=== PATIENT | male | born 1965 | race Caucasian/White ===

== ENCOUNTER 2021-06-13 08:25 | Emergency (ER) | payer OTHER ==
[2021-06-13 08:49] LABS: Absolute Lymphocytes (CBC) 6.9 K/uL (0.7-4.9); Basophils % 0.9 % (0-1.3); Hematocrit 48.4 % (39.6-49.0); Lymphocytes % 28.6 % (15.3-44.8); MPV 9.9 fL (7.6-11.3); RBC Red Blood Cell Count 4.77 M/uL (4.33-5.43)
[2021-06-13 09:16] LABS: Albumin 2.1 g/dL (3.4-5.0); Bilirubin Total 1.5 mg/dL (0.2-1.0); Protein, Total 5.9 g/dL (6.4-8.2)
[2021-06-13 09:18] LABS: Bilirubin Direct 0.5 mg/dL (0-0.2); Troponin (Emerg Dept Use Only) 1.61 ng/mL (0.0-0.045)
[2021-06-13 09:19] LABS: Magnesium 3.8 mg/dL (1.8-2.4)
[2021-06-13 09:20] LABS: Potassium 6.2 mmol/L (3.5-5.1)
[2021-06-13] MEDS ORDERED: NOREPINEPHRINE 4mg/D5W 250mL 4 MG/250 ML BAG IV ONE ×2 (09:28)
[2021-06-13 09:29] LABS: Anisocytosis 1+; Blood Morphology Comment NOTED (NOT SEEN); Platelet Estimate ADEQ; Platelets, Giant NOTED; Polychromasia 1+
[2021-06-13] MEDS ORDERED: D5W 1,000 ML IV ONE (09:43)
[2021-06-13] MEDS ORDERED: Phenylephrine HCl 10 MG/ML 1 ML VIAL ONE (10:01)
[2021-06-13] MEDS ORDERED: D5W 250 ML IV ONE (10:02)
--- NOTE | 2021-06-13 10:05 | RAD REPORT ---
EXAM DESCRIPTION: RAD - Chest Single View - 06/13/2021 9:49 am CLINICAL HISTORY: md hollistrjuan Chest pain. COMPARISON: Chest Pa And Lat (2 Views) dated 07/02/2017 FINDINGS: Portable technique limits examination quality. Endotracheal intubation is noted with the enteric tube about 1-2 cm above the level of the superior a ortic arch. Enteric tube descends into the stomach. Moderate bilateral pulmonary opacities are presen t likely representing pulmonary infection.The heart is upper limit normal in size.
--- NOTE | 2021-06-13 10:08 | EDPHYS ---
Physician Documentation [facility] Name: Yohan Skaggs Age: 55 yrs Sex: Male : 1965 Arrival Date: 06/13/2021 Time: 08:27 Bed 3 Private MD: ED Physician Jose Zavala HPI: 06/13 09:54 This 55 yrs old Male presents to ER via Unassigned with complaints of CPR. aminata 09:54 Preceding the arrest, the patient collapsed, was dyspneic. The arrest occurred at work. aminata Pre-hospital course: The arrest was witnessed Bystanders at the scene performed CPR. EMS care prior to arrival: initiation of ACLS, intubation oxygen, ACLS details: see ems. The patient has not experienced similar symptoms in the past. Historical: - Allergies: 14:12 No Known Allergies; tr6 - Home Meds: 09:00 None [Active]; tr6 - PMHx: 09:00 None; tr6 - PSHx: 09:00 None; tr6 - Family history:: not pertinent. ROS: 09:54 Constitutional: Negative for fever, chills, and weight loss. aminata 09:54 Unable to obtain ROS due to patient is on ventilator, sp cpr. Exam: 09:54 Eyes: Pupils: are fixed and dilated. aminata 09:54 Cardiovascular: Rate: tachycardic, Rhythm: irregularly irregular, Pulses: Pulses are 2+ in bilateral radial, brachial, femoral, popliteal, posterior tibial and and dorsalis pedis arteries.. Edema: is not appreciated, JVD: is noted bilaterally, to the angle of the jaw. 10:03 ECG was reviewed by the Attending Physician. aminata 10:09 ECG was reviewed by the Attending Physician. [facility] Vital Signs: 08:34 BP 164 / 98; Pulse 206; tr6 08:34 BP 130 / 81; Pulse 152; Pulse Ox 97% on ETT ambu; tr6 08:47 BP 164 / 118; Pulse 105; tr6 08:47 BP 109 / 63; Pulse 203; Pulse Ox 81% on ETT vent; tr6 08:47 BP 79 / 41; Pulse 131; Pulse Ox 79% on ETT vent; tr6 09:07 Temp 93.9(C); tr6 09:14 BP 201 / 91; Pulse 121; Pulse Ox 85% on ETT vent; tr6 09:14 BP 97 / 69; Pulse 133; Pulse Ox 81% on ETT vent; tr6 09:25 BP 74 / 27; Pulse 143; Pulse Ox 81% on ETT ambu; tr6 09:30 BP 69 / 45; Pulse 136; Temp 97.3(C); Pulse Ox 89% on ETT ambu; tr6 09:39 BP 76 / 54; Pulse 121; Pulse Ox 84% on ETT vent; tr6 09:39 BP 76 / 54; Pulse 121; Pulse Ox 84% on ETT vent; tr6 09:41 BP 44 / 21; Pulse 102; Pulse Ox 75% on ETT vent; tr6 Procedures: 11:04 Intubation: Intubated orally using # 4 Conner blade with 7.5 mm ETT. was successful aminata on first attempt. Ventilated with Placement verified by CXR, CO2 detector with (+) color change, O2 saturation after procedure was 97 %. Patient tolerated well. Central Line: the site was prepped with Betadine, in sterile fashion, a triple lumen catheter was inserted, in the right in 3 attempts. RIGHT FEMORAL ARTERY PLACEMENT IN FULL CODE SITUATION, REMOVED, PRESSURE DRESSING, SAND BAGS, DISTAL FLOW INTACT. 11:07 Central Line: the site was prepped with LEFT FEMORAL TRIPLE , NO CPR, PLACED WITHOUT aminata DIFFICULTY, GOOD FLOW, STERILE PREPPED , DRESSED. MDM: 09:27 Patient medically screened. aminata 09:57 Differential diagnosis: arrythmia, cardiac arrest, respiratory arrest, renal failure. aminata Data reviewed: vital signs, nurses notes, lab test result(s), EKG, radiologic studies, plain films. Data interpreted: alarm security or surveillance monitor: rate is 126 beats/min, rhythm is atrial fibrillation, irregularly irregular. Test interpretation: by ED physician or midlevel provider: ECG, plain radiologic studies. Counseling: I had a detailed discussion with the patient and/or guardian regarding: the historical points, exam findings, and any diagnostic results supporting the discharge/admit diagnosis, lab results, radiology results. 06/13 08:41 Order name: Basic Metabolic Panel 06/13 08:41 Order name: CBC with Diff 06/13 08:41 Order name: LFT's [facility] 06/13 08:41 Order name: Magnesium; Complete Time: 09:52 [facility] 06/13 08:41 Order name: NT PRO-BNP; Complete Time: 09:52 aa5 06/13 08:41 Order name: Troponin (emerg Dept Use Only); Complete Time: 09:52 aa5 06/13 08:42 Order name: Basic Metabolic Panel; Complete Time: 09:52 EDMS 06/13 08:42 Order name: CBC with Automated Diff; Complete Time: 09:36 EDMS 06/13 08:42 Order name: Liver (Hepatic) Function; Complete Time: 09:52 EDMS 06/13 08:54 Order name: Manual Differential; Complete Time: 09:36 EDMS 06/13 08:57 Order name: Glucose, Ancillary Testing; Complete Time: 09:36 EDMS 06/13 09:29 Order name: ABG em1 06/13 08:41 Order name: XRAY Chest (1 view) [facility] 06/13 09:52 Order name: Type And Screen [facility] 06/13 09:56 Order name: Echo with Doppler EDOH 06/13 10:01 Order name: Packed RBC Leukored EDOH 06/13 10:01 Order name: RBC Leukored Pheresis EDOH 06/13 12:25 Order name: ABG Arterial Blood Gas EDOH 06/13 08:41 Order name: EKG; Complete Time: 08:42 aa5 06/13 08:41 Order name: Cardiac monitoring; Complete Time: 09:54 aa 06/13 08:41 Order name: EKG - Nurse/Tech; Complete Time: 09:54 aa5 06/13 08:41 Order name: IV Saline Lock; Complete Time: 09:54 aa 06/13 08:41 Order name: Labs collected and sent; Complete Time: 09:54 aa 06/13 08:41 Order name: O2 Per Protocol; Complete Time: 09:54 aa5 06/13 08:41 Order name: O2 Sat Monitoring; Complete Time: 09:54 aa5 06/13 09:52 Order name: Transfuse; Complete Time: 11:23 aminata EC:03 Rate is 146 beats/min. Rhythm is irregularly irregular. QRS Kalida is Normal. ND interval aminata is normal. QRS interval is normal. QT interval is normal. No Q waves. T waves are Normal. ST Segment is depressed in leads II, III, aVF, V3, V4, V5, V6. Clinical impression: Atrial Fibrillation. Interpreted by me. Reviewed by me. 10:09 Rate is 128 beats/min. Rhythm is irregularly irregular. QRS Kalida is Normal. ND interval aminata is normal. QRS interval is normal. QT interval is normal. No Q waves. T waves are Normal. No ST changes noted. Clinical impression: Atrial Fibrillation. Interpreted by me. Reviewed by me. Administered Medications: 08:25 Drug: EPINEPHrine 0.1mg/mL 1:10,000 1 mg {Note: left tib fib IO.} Route: IVP; Site: tr6 Other; 08:25 Drug: Sodium Bicarbonate 1 amp {Note: left tib fib IO.} Route: IVP; Site: Other; tr6 08:29 Drug: Sodium Bicarbonate 1 amp Route: IVP; Site: right femoral; tr6 08:29 Drug: EPINEPHrine 0.1mg/mL 1:10,000 1 mg Route: IVP; Site: right femoral; tr6 08:32 Drug: Calcium Chloride 1 grams {Note: left tib fib IO.} Route: IVP; Site: Other; tr6 08:32 Drug: EPINEPHrine 0.1mg/mL 1:10,000 1 mg {Note: left tib fib IO.} Route: IVP; Site: tr6 Other; 08:48 Drug: NS 0.9% 1000 ml {Note: left EJ.} Route: IV; Rate: 1 bolus; Site: Other; tr6 08:49 Drug: Sodium Bicarbonate 1 amp {Note: left EJ.} Route: IVP; Site: Other; tr6 08:49 Drug: EPINEPHrine 0.1mg/mL 1:10,000 1 mg {Note: left EJ.} Route: IVP; Site: Other; tr6 09:11 Drug: EPINEPHrine 0.1mg/mL 1:10,000 1 mg Route: IVP; Site: left femoral; tr6 09:13 Drug: Sodium Bicarbonate 1 amp Route: IVP; Site: left femoral; tr6 09:18 Drug: Sodium Bicarbonate 1 amp Route: IVP; Site: left femoral; tr6 09:18 Drug: Sodium Bicarbonate 1 amp Route: IVP; Site: left femoral; tr6 09:18 Drug: Sodium Bicarbonate 1 amp Route: IVP; Site: left femoral; tr6 09:20 Drug: NS 0.9% 1000 ml Route: IV; Rate: 1 bolus; Site: left femoral; tr6 09:24 Drug: D5W 1000 ml, Sodium Bicarbonate 150 mEq Route: IV; Rate: 150 ml/hr; Site: left tr6 femoral; 09:29 Drug: Levophed (norepinephrine) (4 mg/250 mL D5W 4 mcg/min Route: IV; Rate: calculated tr6 rate; Site: left femoral; 09:34 Drug: Demian-Synephrine (phenylephrine) 100 mcg/min Route: IV; Rate: calculated rate; tr6 Site: left femoral; 09:45 Drug: EPINEPHrine 0.1mg/mL 1:10,000 1 mg Route: IVP; Site: left femoral; tr6 09:46 Drug: Sodium Bicarbonate 1 amp Route: IVP; Site: left forearm; tr6 10:00 Drug: ProTONIX (pantoprazole) 80 mg {Note: left EJ.} Route: IVP; Site: Other; tr6 10:00 Drug: ProTONIX (pantoprazole) 8 mg/hr {Note: left EJ.} Route: IV; Rate: 25 ml/hr; Site: tr6 Other; 10:14 Drug: EPINEPHrine 0.1mg/mL 1:10,000 1 mg Route: IVP; Site: left femoral; tr6 10:17 Drug: Sodium Bicarbonate 1 amp Route: IVP; Site: left femoral; tr6 10:18 Drug: EPINEPHrine 0.1mg/mL 1:10,000 1 mg Route: IVP; Site: left femoral; tr6 10:42 Drug: EPINEPHrine 0.1mg/mL 1:10,000 1 mg Route: IVP; Site: left femoral; tr6 11:24 Not Given (Patient ): Zosyn (piperacillin-tazobactam) 3.375 grams IVPB once over tr6 60 mins; (mix in NS 100 mL) Disposition Summary: 06/13/21 11:04 Patient Pronouncing Physician: Jose Zavala cha Time of : 10:45 06/13/2021 aminata 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) aminata Diagnosis - Acute respiratory failure(06/13/21 11:04) aminata - Acute respiratory failure with hypoxia(06/13/21 11:04) aminata - Coronavirus infection, unspecified(06/13/21 11:04) aminata - Pneumonia due to SARS-associated coronavirus(06/13/21 11:04) aminata - Unspecified atrial fibrillation - with RVR(06/13/21 11:04) aminata - Acidosis - METABOLIC/RESPIRATORY(06/13/21 11:04) aminata - Hypotension due to drugs aminata - GI Bleed/ Gastrointestinal hemorrhage, unspecified - UPPER(06/13/21 11:04) aminata Signatures: Dispatcher [employer] EDMS Jose Zavala MD MD cha Calderon, Audri RN RN aa5 Mela Phan RN RN tr6 Corrections: (The following items were deleted from the chart) 10:07 09:56 PTT, ACTIVATED+[id number].BRZ ordered. EDMS EDMS 10:57 10:06 Inpatient Admission aminata aminata 10:57 10:06 Karin Rogers aminata aminata 10:57 10:06 Intensive Care Unit aminata aminata 10:57 10:06 Critical aminata aminata 10:57 10:06 new aminata aminata 10:57 10:06 are unchanged aminata aminata 10:57 10:06 Standard aminata aminata 10:57 10:06 aminata aminata 10:57 10:06 Acute respiratory failure aminata aminata 10:57 10:06 Acute respiratory failure with hypoxia aminata aminata 10:57 10:06 Acute respiratory failure with hypercapnia aminata aminata 10:57 10:06 GI Bleed/ Gastrointestinal hemorrhage, unspecified - upper aminata aminata 10:57 10:06 Acidosis - metabolic/respiratory aminata aminata 10:57 10:06 Unspecified atrial fibrillation - with RVR aminata aminata 10:57 10:06 Hypotension, unspecified aminata aminata 10:57 10:06 Coronavirus infection, unspecified aminata aminata 10:57 10:06 Pneumonia due to SARS-associated coronavirus aminata aminata 12:09 11:04 Home aminata aminata
[2021-06-13] MEDS ORDERED: PANTOPRAZOLE 40 MG INJ ONE ×2 (10:15→10:19)
[2021-06-13] MEDS ORDERED: NA CHLORIDE 0.9% 250 ML ONE (10:19)
[2021-06-13] MEDS ORDERED: NA CHLORIDE 0.9% 500 ML ONE ×2 (10:25→10:31)
--- NOTE | 2021-06-13 11:05 | ER ---
Nurse's Notes [facility] Name: Yohan Skaggs Age: 55 yrs Sex: Male : 1965 Arrival Date: 06/13/2021 Time: : Bed 3 Private MD: Diagnosis: Acute respiratory failure;Acute respiratory failure with hypoxia;Coronavirus infection, unspecified;Pneumonia due to SARS-associated coronavirus;Unspecified atrial fibrillation-with RVR;Acidosis-METABOLIC/RESPIRATORY;Hypotension due to drugs;GI Bleed/ Gastrointestinal hemorrhage, unspecified-UPPER Presentation: 06/13 08:21 Chief complaint: EMS states: CPR in progress. pt c/o difficulty breathing then tr6 collapsed. Care prior to arrival: Oral intubation. :21 Method Of Arrival: EMS: [facility] tr6 08:21 Acuity: RANDALL 1 tr6 08:21 Compressions began prior to arrival. tr6 Historical: - Allergies: 14:12 No Known Allergies; tr6 - Home Meds: 09:00 None [Active]; tr6 - PMHx: 09:00 None; tr6 - PSHx: 09:00 None; tr6 - Family history:: not pertinent. Assessment: 08:21 CPR assessment: unresponsive, intubated, Ambu ventilation, pulses present w/ tr6 compressions. Cardiac rhythm is asystole. General:. 08:21 Reassessment: Pulse check, no pulse, compressions continued. tr6 08:27 Reassessment: Asystole on the monitor, no pulse, compressions continued. tr6 08:29 Reassessment: Pulse check, ROSC. tr6 08:31 Reassessment: Asystole on the monitor, no pulse, compressions started. tr6 08:34 Reassessment: ROSC. tr6 08:48 Reassessment: Asystole on the monitor, no pulse, compressions started. tr6 08:49 Reassessment: Pulse check, ROSC. tr6 09:11 Reassessment: Aystole on monitor, no pulse, compressions started. tr6 09:14 Reassessment: Pulse check, ROSC. tr6 09:27 Reassessment: Family at bedside with Dr. Zavala. tr6 09:34 Reassessment: Asystole on monitor, no pulse, compressions started. tr6 09:36 Reassessment: Pulse check, no pulse, compressions continued. tr6 09:38 Reassessment: Pulse check, no pulse, compressions continued. tr6 09:40 Reassessment: Pulse check, no pulse, compressions continued. tr6 09:42 Reassessment: Pulse check, no pulse, compressions continued. tr6 09:44 Reassessment: Pulse check, no pulse, compressions continued. tr6 09:46 Reassessment: Pulse check, ROSC. tr6 10:12 Reassessment: Asystole on monitor, no pulse, compressions started. tr6 10:16 Reassessment: PEA on the monitor, no pulse, compressions continued. tr6 10:19 Reassessment: Pulse check, ROSC. tr6 10:30 Reassessment: Gold ring removed from right hand and given to agnieszka Amato's daughter. tr6 10:44 Reassessment: Asystole on monitor. tr6 10:45 Reassessment: Time of called by Dr. Zavala 1045. tr6 Vital Signs: 08:34 BP 164 / 98; Pulse 206; tr6 08:34 BP 130 / 81; Pulse 152; Pulse Ox 97% on ETT ambu; tr6 08:47 BP 164 / 118; Pulse 105; tr6 08:47 BP 109 / 63; Pulse 203; Pulse Ox 81% on ETT vent; tr6 08:47 BP 79 / 41; Pulse 131; Pulse Ox 79% on ETT vent; tr6 09:07 Temp 93.9(C); tr6 09:14 BP 201 / 91; Pulse 121; Pulse Ox 85% on ETT vent; tr6 09:14 BP 97 / 69; Pulse 133; Pulse Ox 81% on ETT vent; tr6 09:25 BP 74 / 27; Pulse 143; Pulse Ox 81% on ETT ambu; tr6 09:30 BP 69 / 45; Pulse 136; Temp 97.3(C); Pulse Ox 89% on ETT ambu; tr6 09:39 BP 76 / 54; Pulse 121; Pulse Ox 84% on ETT vent; tr6 09:39 BP 76 / 54; Pulse 121; Pulse Ox 84% on ETT vent; tr6 09:41 BP 44 / 21; Pulse 102; Pulse Ox 75% on ETT vent; tr6 ED Course: 08:27 Patient arrived in ED. bp 08:56 Inserted saline lock: in left ,using aseptic technique. triple lumen femoral by MD jake Zavala Blood collected. 09:07 Taylor cath inserted, using sterile technique, 16 Fr., by or, by ED staff, balloon tr6 inflated, to gravity drainage, urine specimen collected. 09:21 NGT: inserted other OG by RT. tr6 09:27 Jose Zavala MD is Attending Physician. aminata 09:35 Mela Phan RN is Primary Nurse. tr6 09:49 XRAY Chest (1 view) In Process Unspecified. EDMS 10:04 Karin Rogers MD is Hospitalizing Provider. aminata 10:30 EKG done, by ED staff, reviewed by Jose Zavala MD. dh3 11:00 Jose Zavala MD is Pronouncing Provider. aminata 11:06 Triage completed. tr6 Administered Medications: 08:25 Drug: EPINEPHrine 0.1mg/mL 1:10,000 1 mg {Note: left tib fib IO.} Route: IVP; Site: tr6 Other; 08:25 Drug: Sodium Bicarbonate 1 amp {Note: left tib fib IO.} Route: IVP; Site: Other; tr6 08:29 Drug: Sodium Bicarbonate 1 amp Route: IVP; Site: right femoral; tr6 08:29 Drug: EPINEPHrine 0.1mg/mL 1:10,000 1 mg Route: IVP; Site: right femoral; tr6 08:32 Drug: Calcium Chloride 1 grams {Note: left tib fib IO.} Route: IVP; Site: Other; tr6 08:32 Drug: EPINEPHrine 0.1mg/mL 1:10,000 1 mg {Note: left tib fib IO.} Route: IVP; Site: tr6 Other; 08:48 Drug: NS 0.9% 1000 ml {Note: left EJ.} Route: IV; Rate: 1 bolus; Site: Other; tr6 08:49 Drug: Sodium Bicarbonate 1 amp {Note: left EJ.} Route: IVP; Site: Other; tr6 08:49 Drug: EPINEPHrine 0.1mg/mL 1:10,000 1 mg {Note: left EJ.} Route: IVP; Site: Other; tr6 09:11 Drug: EPINEPHrine 0.1mg/mL 1:10,000 1 mg Route: IVP; Site: left femoral; tr6 09:13 Drug: Sodium Bicarbonate 1 amp Route: IVP; Site: left femoral; tr6 09:18 Drug: Sodium Bicarbonate 1 amp Route: IVP; Site: left femoral; tr6 09:18 Drug: Sodium Bicarbonate 1 amp Route: IVP; Site: left femoral; tr6 09:18 Drug: Sodium Bicarbonate 1 amp Route: IVP; Site: left femoral; tr6 09:20 Drug: NS 0.9% 1000 ml Route: IV; Rate: 1 bolus; Site: left femoral; tr6 09:24 Drug: D5W 1000 ml, Sodium Bicarbonate 150 mEq Route: IV; Rate: 150 ml/hr; Site: left tr6 femoral; 09:29 Drug: Levophed (norepinephrine) (4 mg/250 mL D5W 4 mcg/min Route: IV; Rate: calculated tr6 rate; Site: left femoral; 09:34 Drug: Demian-Synephrine (phenylephrine) 100 mcg/min Route: IV; Rate: calculated rate; tr6 Site: left femoral; 09:45 Drug: EPINEPHrine 0.1mg/mL 1:10,000 1 mg Route: IVP; Site: left femoral; tr6 09:46 Drug: Sodium Bicarbonate 1 amp Route: IVP; Site: left forearm; tr6 10:00 Drug: ProTONIX (pantoprazole) 80 mg {Note: left EJ.} Route: IVP; Site: Other; tr6 10:00 Drug: ProTONIX (pantoprazole) 8 mg/hr {Note: left EJ.} Route: IV; Rate: 25 ml/hr; Site: tr6 Other; 10:14 Drug: EPINEPHrine 0.1mg/mL 1:10,000 1 mg Route: IVP; Site: left femoral; tr6 10:17 Drug: Sodium Bicarbonate 1 amp Route: IVP; Site: left femoral; tr6 10:18 Drug: EPINEPHrine 0.1mg/mL 1:10,000 1 mg Route: IVP; Site: left femoral; tr6 10:42 Drug: EPINEPHrine 0.1mg/mL 1:10,000 1 mg Route: IVP; Site: left femoral; tr6 11:24 Not Given (Patient ): Zosyn (piperacillin-tazobactam) 3.375 grams IVPB once over tr6 60 mins; (mix in NS 100 mL) Medication: 10:13 Blood products: PRBCs. tr6 10:42 Blood products: PRBCs X 2 units given. 2 units rapid transfusion completed at 1042. tr6 Outcome: 10:06 Decision to Hospitalize by Provider. aminata 10:45 Outcome Patient tr6 10:45 Patient : 10:45 Condition: 14:13 Patient left the ED. tr6 Signatures: Dispatcher [employer] EDOR Jose Zavala MD MD cha Herrera, Deanna [facility] Sam Irby RN RN bp Mela Phan RN RN tr6 Corrections: (The following items were deleted from the chart) 13:40 13:19 Reassessment: tr6 bp 14:09 11:45 Cardiovascular: Pulses tr6 tr6
[2021-06-13 12:22] LABS: Blood Gas Oxyhemoglobin 89.9 % (94-97); Blood O2 Saturation 90.9 % (92-98.5)
[2021-06-13 12:26] LABS: Arterial Blood Carboxyhemoglob 0.4 % (0-1.5); Blood O2 Saturation 85.5 % (92-98.5)
[2021-06-13 14:30] VITALS: TEMP 97.3
[2021-06-13 14:33] VITALS: BP 44/21; O2SAT 75
--- NOTE | 2021-06-14 09:03 | ECHO ---
HEIGHT: ft in WEIGHT: lb oz DATE OF STUDY: 06/13/[address]: Jose Zavala MD 2-DIMENSIONAL: YES M.MODE: YES DOPPLER: YES COLOR FLOW: YES TDS: PORTABLE: DEFINITY: BUBBLE STUDY: DIAGNOSIS: CPR IN PROGRESS CARDIAC HISTORY: CATHERIZATION: SURGERY: PROSTHETIC VALVE: PACEMAKER: MEASUREMENTS (cm) DIASTOLIC (NORMALS) SYSTOLIC (NORMALS) IVSd 1.3 (0.6-1.2) LA Diam (1.9-4.0) LVEF >60% LVIDd 2.5 (3.5-5.7) LVIDs 1.5 (2.0-3.5) %FS 43% LVPWd 1.3 (0.6-1.2) Ao Diam (2.0-3.7) 2 DIMENSIONAL ASSESSMENT: RIGHT ATRIUM: NORMAL LEFT ATRIUM: NORMAL RIGHT VENTRICLE: DILATED LEFT VENTRICLE: LEFT VENTRICULAR HYPERTROPHY TRICUSPID VALVE: NORMAL MITRAL VALVE: NORMAL PULMONIC VALVE: NORMAL AORTIC VALVE: NORMAL PERICARDIAL EFFUSION: NONE AORTIC ROOT: NORMAL LEFT VENTRICULAR WALL MOTION: HYPERDYNAMIC LEFT VENTRICLE DOPPLER/COLOR FLOW: SEE BELOW COMMENTS: POOR STUDY BUT LEFT VENTRICULAR EJECTION FRACTION APPEARS HYPERDYNAMIC (EMPTY LEFT VENTRICLE) EJECTION FRACTION >60%. DILATED RIGHT VENTRICLE WITH MODERATE DYSFUNCTION. TECHNOLOGIST: RENO DEUTSCH
== END 2021-06-13 14:13 ==
LOC: ER 08:25
PROC: 06HN33Z Insertion of Infusion Device into Left Femoral Vein, Percutaneous Approach (ICD-10-PCS; principal; 2021-06-13)
DX: U07.1 COVID-19 (principal); J12.82 Pneumonia due to coronavirus disease 2019; K92.2 Gastrointestinal hemorrhage, unspecified; E87.4 Mixed disorder of acid-base balance; I95.2 Hypotension due to drugs; I48.20 Chronic atrial fibrillation, unspecified
CPT/HCPCS: 36556; 93005 ×2; 93306; 85025; 80048; 86900; 83735; 86850; 86901; 82947; 80076; 84484; 83880; 71045; 94002; 82805 ×2; 31500; 36430; 51702; 92950; 99291; 99292; J2370; C9113 ×2; P9016 ×2; J7060; J7050 ×3